=== PATIENT | male | born 1935 | race Caucasian/White ===

== ENCOUNTER → 2016-10-03 | Outpatient (CLI) | payer MEDICARE ==
[~2016-10-03] MED LIST: ALPR-475 PO; APIX5TAB PO; CAND32TA2 PO; CAND8TAB PO; CARB1TAB48 PO; CHOL500015 PO; CHOL500050 PO; DILT180C9 PO; ECOTRIN PO; ERGO500017 PO; GLIM2TAB2 PO; GLYB2.5T2 PO; HYDR12.58 PO; METF10002 PO; METO50TA11 PO; METO50TA82 PO; OMEP40CA6 PO; PANT40TA3 PO; PIOG45TA7 PO; PRAM0.125 PO; SIMV20TA3 PO; SOTA120T26 PO; TICA90TA PO
== END | disposition home or self-care (01) ==
LOC: CFH 13:57
PROVIDERS: ATTEND Internal Medicine Cardiovascular Disease
DX: I25.10 Atherosclerotic heart disease of native coronary artery without angina pectoris (principal)
CPT/HCPCS: 93306

== ENCOUNTER → 2017-01-07 | Outpatient (CLI) | payer MEDICARE ==
[~2017-01-07] MED LIST changes: +METO-264 PO; -METO50TA11 PO; +PIOG45TA20 PO; -PIOG45TA7 PO
== END | disposition home or self-care (01) ==
LOC: CVU 11:43
PROVIDERS: ATTEND Internal Medicine Cardiovascular Disease
DX: I73.9 Peripheral vascular disease, unspecified (principal); I25.10 Atherosclerotic heart disease of native coronary artery without angina pectoris; I10 Essential (primary) hypertension; E78.5 Hyperlipidemia, unspecified; I48.91 Unspecified atrial fibrillation; E11.9 Type 2 diabetes mellitus without complications; Z87.891 Personal history of nicotine dependence
CPT/HCPCS: 93922

== ENCOUNTER 2019-03-04 12:01 | Outpatient (CLI) | payer MEDICARE ==
[~2019-03-04 12:01] MED LIST changes: -ALPR-475 PO; +ALPR0.5T7 PO; +CAND32TA19 PO; -CAND32TA2 PO; -CAND8TAB PO; +CAND8TAB10 PO; -GLIM2TAB2 PO; +GLIM2TAB3 PO; -HYDR12.58 PO; +HYDROCHLOROTH12.5 MG PO; +OMEP40CA42 PO; -OMEP40CA6 PO; +REGADENOSON 0.4 MG/5 ML SYRINGE ONE
== END 2019-03-04 23:59 | disposition home or self-care (01) ==
LOC: CFH 12:01
PROVIDERS: ATTEND Internal Medicine Cardiovascular Disease
DX: I08.3 Combined rheumatic disorders of mitral, aortic and tricuspid valves (principal); I21.9 Acute myocardial infarction, unspecified; I45.19 Other right bundle-branch block; I48.91 Unspecified atrial fibrillation
CPT/HCPCS: 78452; 93017; 93306; A9502; J2785